=== PATIENT | female | born 1935 | race Caucasian/White ===

== ENCOUNTER → 2016-08-22 | Outpatient (CLI) | payer OTHER ==
[2016-08-22 12:11] LABS: HEMATOCRIT 40.3 % (37.0-47.0); HEMOGLOBIN 13.2 g/dL (12.0-16.0); MEAN CORPUSCULAR HEMOGLOBIN 30.8 PG (27-31); MEAN CORPUSCULAR HGB CONC 32.8 g/dL (33-37); MEAN CORPUSCULAR VOLUME 93.9 FL (81-99); MEAN PLATELET VOLUME 9.9 FL (7.4-12.2); RED BLOOD COUNT 4.29 10^6/uL (4.20-5.40)
== END ==
LOC: MOB LAB 11:07
PROVIDERS: ATTEND Family Medicine
DX: R19.7 Diarrhea, unspecified (principal); R10.812 Left upper quadrant abdominal tenderness
CPT/HCPCS: 36415; 85027; 99214; G0463

== ENCOUNTER → 2016-08-29 | Outpatient (CLI) | payer OTHER ==
[2016-08-31 13:22] LABS: PARASITIC EXAM FIN 1215 (())
== END ==
LOC: LAB 17:46
PROVIDERS: ATTEND Family Medicine
DX: R19.7 Diarrhea, unspecified (principal)
CPT/HCPCS: 87046; 87177; 87205; 87209; 87328; 87329; 87493

== ENCOUNTER → 2016-10-02 | Outpatient (CLI) | payer OTHER ==
[2016-10-02 10:59] LABS: HEMATOCRIT 40.2 % (37.0-47.0); HEMOGLOBIN 13.2 g/dL (12.0-16.0); MEAN CORPUSCULAR HEMOGLOBIN 30.6 PG (27-31); MEAN CORPUSCULAR HGB CONC 32.8 g/dL (33-37); MEAN CORPUSCULAR VOLUME 93.3 FL (81-99); MEAN PLATELET VOLUME 9.6 FL (7.4-12.2); RED BLOOD COUNT 4.31 10^6/uL (4.20-5.40)
[2016-10-02 11:18] LABS: CALCIUM 9.6 mg/dL (8.7-10.7); CHOL/HDL RATIO 2.73 RATIO (0-4.0); LDL CHOLESTEROL,CALCULATED 90.4 mg/dL; SERUM ALBUMIN 4.2 g/dL (3.5-4.8)
[2016-10-02 11:34] LABS: FREE T4 (FREE THYROXINE) 1.28 ng/dL (0.93-1.71)
== END ==
LOC: MOB LAB 10:09
PROVIDERS: ATTEND Family Medicine
DX: B02.29 Other postherpetic nervous system involvement (principal); E78.5 Hyperlipidemia, unspecified; K59.00 Constipation, unspecified; R51 Headache; M54.2 Cervicalgia; R09.89 Other specified symptoms and signs involving the circulatory and respiratory systems
CPT/HCPCS: 36415; 80053; 80061; 82607; 82728; 83540; 83550; 84439; 84443; 85027

== ENCOUNTER → 2016-10-04 | Outpatient (CLI) | payer OTHER ==
--- NOTE | 2016-10-04 11:17 | DI ---
CT BONE DENSITOMETRY OF THE SPINE AND HIP, 10/04/2016 10:27 AM : Clinical History: Asymptomatic post menopausal patient. Screening. Previous Exam: October 27, [address] (QCT) Bone Mineral Densitometry: The [place] scans demonstrate postsurgical changes consistent with a right total hip arthroplasty. Low dose scans are obtained of the lumbar spine and sampling is obtained through the midbodies of L1 and L2. The average volumetric bone mineral density (BMD) of the lumbar spine is 64.4 mg/cm3. This v alue corresponds to a volumetric T-score of -4.0 and Z-score of -0.3 as assessed by this BMD software . Volumetric 3D QCT and areal DEXA T-scores and Z-scores are not directly equivalent. Using the [employer]'s (ACR) volumetric QCT trabecular spine BMD conversion table that is closely equivalent to the areal WHO diagnostic categories, this patient falls into the category of osteoporo sis. CT X-Ray Absorptiometry (CTXA) Hip Bone Mineral Densitometry: Low dose scans are obtained through the hips for assessment of bone mineral density (BMD) and T-score s and Z-scores of the left hip. Total hip BMD: 0.724 mg/cm2 T-score: -1.71 Z-score: Femoral neck BMD: 0.620 mg/cm2 T-score: -1.6 Z-score: Note: T-scores of the spine and hip exhibit discordant readings approximately 40% of the time in eval uated patients. Changes in BMD determined either by volumetric QCT or areal DEXA are more reliable in assessment of change in a patient's BMD status rather than changes in T-scores. The CTXA hip CT bone mineral density measurements and the resultant T-scores and Z-scores are exact hip DEXA scan equival ents. The femoral neck T-score can be used in the WHO's FRAX program for assessing an untreated patie nt's 10 year fracture risk. There is a hypodense large 6.2 x 3.7 cm simple cyst within the posterior segment of the right lobe of the liver. The gallbladder is not well evaluated. A few peripheral vascular calcifications are seen. Moderate st ool is noted throughout the colon. 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 This patient also had osteoporosis on the exam from 2007.
== END ==
LOC: CT 10:16
PROVIDERS: ATTEND Nurse Practitioner Family
DX: Z78.0 Asymptomatic menopausal state (principal); Z13.820 Encounter for screening for osteoporosis
CPT/HCPCS: 77078

== ENCOUNTER → 2016-10-11 | Outpatient (CLI) | payer OTHER ==
--- NOTE | 2016-10-11 10:59 | DI ---
US ABDOMEN LIMITED,10/11/2016 9:54 AM: Clinical History: Elevated bilirubin. Previous Exam: January 02, 2007 Findings: Multiple grayscale and color Doppler sonographic images are obtained through the right upper quadrant , and demonstrate a large simple hepatic cyst measuring 5 cm in diameter. This is stable when compare d with the prior exam. There is also stable 7 cm hepatic cyst. The other hepatic parenchyma is normal. The gallbladder is also normal. The common bile duct measures 5 mm in diameter. The aorta is unremark able throughout its visualized portions. Right kidney demonstrates some minimal cortical thinning, and measured 9.2 cm in length without hydro nephrosis nor nephrolithiasis. There is no abdominal ascites. Impression: 1. Stable simple hepatic cysts. 2. No findings to explain elevated bilirubin.
== END ==
LOC: US 09:51
PROVIDERS: ATTEND Family Medicine
DX: R17 Unspecified jaundice (principal)
CPT/HCPCS: 76705